=== PATIENT | male | born 1985 | race Caucasian/White ===

== ENCOUNTER 2017-07-14 09:12 | Emergency (ER) | payer OTHER ==
[~2017-07-14] VITALS: Ht 182.9 cm; Wt 77.1 kg
[2017-07-14] MEDS ORDERED: Naprosyn500 MG PO (09:43)
[2017-07-14] MEDS ORDERED: Augmentin 875-1 EACH PO (09:43)
[2017-07-14] MEDS ORDERED: PERIDEX15 ML MM (09:43)
== END 2017-07-14 09:46 | disposition home or self-care (01) ==
LOC: ER 09:12
DX: K04.7 Periapical abscess without sinus (principal); F17.200 Nicotine dependence, unspecified, uncomplicated; Z79.2 Long term (current) use of antibiotics; Z79.891 Long term (current) use of opiate analgesic
CPT/HCPCS: 99283

== ENCOUNTER 2017-07-22 13:41 | Emergency (ER) | payer OTHER ==
[~2017-07-22] VITALS: Ht 182.9 cm; Wt 79.8 kg
[~2017-07-22 13:41] MED LIST: Augmentin 875-1 EACH PO; Naprosyn500 MG PO; PERIDEX15 ML MM
[2017-07-22] MEDS ORDERED: Ultram50 MG PO (14:30)
[2017-07-22] MEDS ORDERED: Keflex500 MG PO (14:30)
== END 2017-07-22 14:50 | disposition home or self-care (01) ==
LOC: ER 13:41
DX: L05.91 Pilonidal cyst without abscess (principal); F17.200 Nicotine dependence, unspecified, uncomplicated; Z79.899 Other long term (current) drug therapy; Z79.2 Long term (current) use of antibiotics
CPT/HCPCS: 99283

== ENCOUNTER 2021-07-03 15:48 | Emergency (ER) | payer SELFPAY ==
[~2021-07-03] VITALS: Ht 182.9 cm; Wt 81.7 kg
[~2021-07-03 15:48] MED LIST changes: +Keflex500 MG PO; +Ultram50 MG PO
[2021-07-03 16:44] LABS: Source, Urine Voided
[2021-07-03 16:52] LABS: Appearance, Urine Clear (Clear); Bilirubin, Urine Neg (Neg); Blood, Urine Neg (Neg); Color, Urine Yellow (P-Yellow); Glucose Qualitative, Urine Neg (Neg); Ketones, Urine 3+ (Neg); Leukocyte Esterase, Urine 1+ (Neg); Nitrite, Urine Neg (Neg); Protein, Urine 2+ (Neg); Urobilinogen, Urine 1+ (Normal)
[2021-07-03 17:01] LABS: Bacteria Mod /hpf; Hyaline Casts 0-2 /lpf (0-2); Red Blood Cells, Urine Not Seen /hpf (0-2); Squamous Epithelial Cells Rare /hpf (Few); White Blood Cells, Urine 0-2 /hpf (0-5)
[2021-07-03] MEDS ORDERED: CODACE30 PO (18:18)
[2021-07-03] MEDS ORDERED: IBUP800 PO (18:18)
== END 2021-07-03 18:28 | disposition home or self-care (01) ==
LOC: ER 15:48
PROVIDERS: Emergency Medicine
DX: S09.90XA Unspecified injury of head, initial encounter (principal); S16.1XXA Strain of muscle, fascia and tendon at neck level, initial encounter; F17.210 Nicotine dependence, cigarettes, uncomplicated; Z79.899 Other long term (current) drug therapy; W17.89XA Other fall from one level to another, initial encounter
CPT/HCPCS: 70450; 72125; 81001; 87086; 99284-25; A9270

== ENCOUNTER 2023-03-11 15:16 | Inpatient (IN) | payer OTHER ==
[~2023-03-11] VITALS: Ht 182.9 cm; Wt 79.4 kg
[~2023-03-11 15:16] MED LIST changes: +CODACE30 PO; +IBUP800 PO
[2023-03-11 15:55] LABS: Hematocrit 48.6 % (37.0-53.0); Hemoglobin 16.8 g/dL (13.5-17.5); Mean Corpuscular HGB 31.9 pg (26.0-34.0); Mean Corpuscular HGB Conc 34.6 g/dL (31.5-36.5); Mean Corpuscular Volume 92 fL (80-100); Mean Platelet Volume 10.6 fL (9.1-12.4); Platelet Count 252 K/mm3 (150-400); RDW Coefficient Variation 12.6 % (11.7-14.2); RDW Standard Deviation 43.2 fL (35.1-46.3); Red Blood Cell Count 5.27 M/mm3 (4.30-5.90)
[2023-03-11 16:09] LABS: International Normalized Ratio 1.01; Prothrombin Time Results 10.6 Sec (9.7-11.5)
[2023-03-11 16:14] LABS: Albumin, Blood 3.9 g/dL (3.4-5.0); Albumin/Globulin Ratio 1.2 (0.8-1.8); Bilirubin, Total 0.5 mg/dL (0.1-1.0); Bun/Creatinine Ratio 12.4 (12.0-20.0); Calcium, Blood 8.9 mg/dL (8.5-10.1); Creatinine, Blood 1.05 mg/dL (0.60-1.20); Globulin, Blood 3.2 g/dL (2.2-4.0); Potassium, Blood 3.7 mmol/L (3.5-5.5); Total Protein, Blood 7.1 g/dL (6.4-8.2)
[2023-03-11 16:26] LABS: BASOPHILS PERCENT MAN 0 % (0-2); EOSINOPHILS ABSOLUTE MAN 0.45 K/mm3 (0.00-0.68); EOSINOPHILS PERCENT MAN 3 % (0-6); LYMPHOCYTES % ATYPICAL MANUAL 3 % (0-0); LYMPHOCYTES ABSOLUTE MAN 5.81 K/mm3 (0.84-5.20); LYMPHOCYTES PERCENT MAN 35 % (21-46); MONOCYTES ABSOLUTE MAN 0.76 K/mm3 (0.16-1.47); MONOCYTES PERCENT MAN 5 % (4-13); NEUTROPHILS ABSOLUTE MAN 8.26 K/mm3 (1.96-9.15); SEG NEUTROPHILS PERCENT MAN 54 % (41-73); TOTAL CELLS COUNTED 100
[2023-03-11 23:27] VITALS: BP 142/87
[2023-03-11 23:30] VITALS: BP 119/103
[2023-03-11 23:35] VITALS: BP 138/85
[2023-03-11 23:40] VITALS: BP 142/87
[2023-03-11 23:45] VITALS: BP 132/83
[2023-03-11 23:50] VITALS: BP 137/82
[2023-03-12 00:02] VITALS: BP 143/83
--- NOTE | 2023-03-12 00:11 | NUR ---
ARRIVAL PT ARRIVED FROM PACU IN NO DISTRESS, A/OX3. PT REPORTS FEELING VERY GROGGY. SLOW TO RESPOND BUT IS INTERACTING APPROPRIATELY. PT ABLE TO MOVE TOES ON LLE AND HAS BRISK CAP REFILL. PT ABLE TO MOVE SELF AROUND IN BED, REPORTS VASTLY IMPROVED PAIN. DENIES NEEDING MEDICATION AT THIS TIME. CHIN, PARTNER, IS ON HER WAY IN TO SEE THE PATIENT AT THIS TIME
[2023-03-12 00:27] VITALS: BP 132/82
[2023-03-12 01:00] VITALS: BP 136/82
[2023-03-12 02:02] VITALS: BP 129/78
[2023-03-12 03:32] VITALS: BP 126/69
[2023-03-12 04:41] LABS: Hematocrit 39.9 % (37.0-53.0); Hemoglobin 13.1 g/dL (13.5-17.5); Mean Corpuscular HGB 31.3 pg (26.0-34.0); Mean Corpuscular HGB Conc 32.8 g/dL (31.5-36.5); Mean Corpuscular Volume 95 fL (80-100); Mean Platelet Volume 10.4 fL (9.1-12.4); Platelet Count 174 K/mm3 (150-400); RDW Coefficient Variation 12.7 % (11.7-14.2); RDW Standard Deviation 43.9 fL (35.1-46.3); Red Blood Cell Count 4.19 M/mm3 (4.30-5.90)
[2023-03-12 05:02] LABS: Bun/Creatinine Ratio 15.8 (12.0-20.0); Calcium, Blood 8.3 mg/dL (8.5-10.1); Creatinine, Blood 1.01 mg/dL (0.60-1.20); Potassium, Blood 4.4 mmol/L (3.5-5.5)
--- NOTE | 2023-03-12 05:03 | NUR ---
SHIFT SUMMARY PT ARRIVED TO FLOOR JUST BEFORE MIDNIGHT. POD 0 R INTERMEDULLARY JOIE RETROGRADE WITH SKIN I&D R/T FEMUR FX. LEG IS WRAPPED WITH MONSTER ALE, C/D/I UPON VISUALIZATION. A&O X4. PT TOLERATING ORALS. VS WNL FOR PT, O2 SAT >96% ON RA. PT REPORTS PAIN TOLERABLE, MEDICATED PER EMAR. PT URINATE INDEPENDENTLY IN URINAL, OUTPUT LESS THAN ANTICIPATED. PT BLADDER SCANNED WITH LITTLE TO NO RETAINED URINE, FLUIDS RUNNING PER EMAR. NO BM THIS SHIFT. PT HAS NOT AMBULATED OVERNIGHT. SIGNIFICANT OTHER VISITED PT FOR APPROX 1 HOUR POST OP. BED IN LOWEST POSITION, CALL LIGHT WITHIN REACH, WILL REPORT TO DAY NURSE.
[2023-03-12 07:01] VITALS: BP 119/72
[2023-03-12] MEDS ORDERED: ACET325 PO (10:58)
[2023-03-12] MEDS ORDERED: IBUP600 PO (10:58)
[2023-03-12] MEDS ORDERED: OXYC5 PO (10:59)
--- NOTE | 2023-03-12 11:25 | NUR ---
DISCHARGE CLEARED THERAPY. PAIN WELL MANAGED. WANTS TO GO HOME & FEELS COMFORTABLE w/ DC PLAN. ESCORTED OUT VIA WC.
== END 2023-03-12 11:25 | disposition home or self-care (01) | DRG 482 ==
LOC: ER 15:16 → SURS 19:03
PROVIDERS: Orthopaedic Surgery; Student in an Organized Health Care Education/Training Program; ADMIT Surgery
PROC: 0QSB04Z Reposition Right Lower Femur with Internal Fixation Device, Open Approach (ICD-10-PCS; principal; 2023-03-11 19:00)
DX: S72.401A Unspecified fracture of lower end of right femur, initial encounter for closed fracture (principal); F17.210 Nicotine dependence, cigarettes, uncomplicated; F12.90 Cannabis use, unspecified, uncomplicated; M21.961 Unspecified acquired deformity of right lower leg; V86.55XA Driver of 3- or 4- wheeled all-terrain vehicle (ATV) injured in nontraffic accident, initial encounter
CPT/HCPCS: 36415; 70450; 71045; 71260; 72125; 72170; 73552; 73700; 74177; 80048; 80053; 85025; 85027; 85610; 86850; 86900; 86901; 86923; 94760; 96365-59; 96375-59; 96376-59; 97116; 97162; 99285-25; A9270; C1713; C1769; J0330; J0690; J1100; J1170; J1650; J1885; J2405; J2704; J3010; J3370; J7120; Q9967

== ENCOUNTER 2023-08-11 07:54 | Day surgery (SDC) | payer OTHER ==
[~2023-08-11] VITALS: Ht 182.9 cm; Wt 73.8 kg
[~2023-08-11 07:54] MED LIST changes: +ACET325 PO; +EPINEPhrine HCl 1 MG/ML 1ML Amp ONE; +IBUP600 PO; +Lactated Ringer's 1,000 ML IV ONE; +OXYC5 PO; +Ropivacaine 0.5% HCl/Pf 5 MG/ML 20ML VIAL ONE
[2023-08-11] MEDS ORDERED: CeFAZolin Sodium 2,000 MG VIAL ONE (08:32)
[2023-08-11] MEDS ORDERED: NS 50 ML IV ONE (08:33)
[2023-08-11] MEDS ORDERED: Lactated Ringer's 1,000 ML IV ONE (08:57)
[2023-08-11] MEDS ORDERED: Midazolam HCl 1MG / ML 2ML Vial ONE (09:08)
[2023-08-11] MEDS ORDERED: propofoL 20 ML IV ONE ×2 (09:08→10:20)
[2023-08-11] MEDS ORDERED: FentaNYL Citrate 50 MCG/ML 2 ML Injection ONE (09:08)
--- NOTE | 2023-08-11 10:15 | NUR ---
08/11/23 Isis Wolff NIPPLE PIERCINGS REMOVED AND PLACED IN CUP AND PUT IN LOCKER WITH PATIENT ID STICKER
[2023-08-11] MEDS ORDERED: Dexamethasone Sod Phos 10 MG/ML 1ML VIAL ONE (10:45)
[2023-08-11] MEDS ORDERED: Ketorolac Tromethamine 30mg Vial ONE (10:45)
[2023-08-11] MEDS ORDERED: Ondansetron HCl 2 MG / ML 2ML Vial ONE (10:45)
--- NOTE | 2023-08-11 10:53 | NUR ---
08/11/23 [id number] Jahaira Reyes 20ML OF ROPIVACAINE 0.5% MIXED AND VERIFIED WITH 0.1ML OF EPI (1MG/ML) TO MAKE ROPIVACAINE 0.5% WITH EPI 1:200,000 FOR INJECTION AT THE OPSITE BY DR PENA
[2023-08-11] MEDS ORDERED: EPINEPhrine HCl 1 MG/ML 1ML Amp XX ONE (10:55)
[2023-08-11 11:36] VITALS: BP 118/76
[2023-08-11] MEDS ORDERED: OxyCODONE HCL 5 MG TAB ONE (11:57)
== END 2023-08-11 12:13 | disposition home or self-care (01) ==
LOC: ORSCSDS 07:54
PROVIDERS: Orthopaedic Surgery
PROC: 0QP104Z Removal of Internal Fixation Device from Sacrum, Open Approach (ICD-10-PCS; principal; 2023-08-11 09:30)
DX: T84.84XA Pain due to internal orthopedic prosthetic devices, implants and grafts, initial encounter (principal); S72.461D Displaced supracondylar fracture with intracondylar extension of lower end of right femur, subsequent encounter for closed fracture with routine healing; F17.210 Nicotine dependence, cigarettes, uncomplicated
CPT/HCPCS: A9270; J0171; J0690; J1100; J1885; J2250; J2405; J2704; J2795; J3010; J7120

== ENCOUNTER → 2024-06-20 | Outpatient (CLI) | payer OTHER ==
[~2024-06-20] MED LIST changes: -EPINEPhrine HCl 1 MG/ML 1ML Amp ONE; -Lactated Ringer's 1,000 ML IV ONE; -Ropivacaine 0.5% HCl/Pf 5 MG/ML 20ML VIAL ONE
[2024-06-20 12:40] LABS: BASOPHILS ABSOLUTE AUTO 0.03 K/mm3 (0.00-0.23); BASOPHILS PERCENT AUTO 1 % (0-2); EOSINOPHILS ABSOLUTE AUTO 0.19 K/mm3 (0.00-0.68); EOSINOPHILS PERCENT AUTO 3 % (0-6); Hemoglobin 16.7 g/dL (13.5-17.5); IMMATURE GRAN ABSOLUTE AUTO 0.08 K/mm3 (0.00-0.10); IMMATURE GRAN PERCENT AUTO 1 % (0-1); LYMPHOCYTES ABSOLUTE AUTO 1.89 K/mm3 (0.84-5.20); LYMPHOCYTES PERCENT AUTO 32 % (21-46); MONOCYTES ABSOLUTE AUTO 0.59 K/mm3 (0.16-1.47); MONOCYTES PERCENT AUTO 10 % (4-13); Mean Corpuscular HGB 30.8 pg (26.0-34.0); Mean Corpuscular HGB Conc 33.4 g/dL (31.5-36.5); Mean Corpuscular Volume 92 fL (80-100); Mean Platelet Volume 10.4 fL (9.1-12.4); NEUTROPHILS ABSOLUTE AUTO 3.13 K/mm3 (1.96-9.15); NEUTROPHILS PERCENT AUTO 53 % (41-73); Platelet Count 180 K/mm3 (150-400); RDW Coefficient Variation 12.6 % (11.7-14.2); RDW Standard Deviation 42.7 fL (35.1-46.3); Red Blood Cell Count 5.42 M/mm3 (4.30-5.90); White Blood Cell Count 5.91 K/mm3 (4.00-11.30)
[2024-06-20 12:47] LABS: Albumin, Blood 3.8 g/dL (3.4-5.0); Bilirubin, Total 0.5 mg/dL (0.1-1.0); Bun/Creatinine Ratio 12.5 (12.0-20.0); Calcium, Blood 8.9 mg/dL (8.5-10.1); Creatinine, Blood 0.96 mg/dL (0.60-1.20); Globulin, Blood 3.9 g/dL (2.2-4.0); Potassium, Blood 3.9 mmol/L (3.5-5.5); Total Protein, Blood 7.7 g/dL (6.4-8.2)
== END | disposition home or self-care (01) ==
LOC: LAB 12:28 → LAB SHORT 12:28
PROVIDERS: Physician Assistant Surgical
DX: R10.13 Epigastric pain (principal)
CPT/HCPCS: 80053; 83690; 85025